=== PATIENT | male | born 2000 | race Caucasian/White ===

== ENCOUNTER 2024-10-20 21:42 | Emergency (ER) | payer OTHER ==
[2024-10-20 21:49] VITALS: BP 134/73; PULSE 86; RESP 18; TEMP 98; BMI 22.8
[2024-10-20] MEDS ORDERED: AMOX TR/POT CLAV 875MG/125MG TABLETS (FP) ONE (23:43)
[2024-10-20] MEDS: AMOX TR/POT CLAV 875MG/125MG TABLETS (FP) PO ONE (23:45)
[2024-10-21] MEDS ORDERED: BACITRACIN ZINC 15 GM TUBE TOPICAL OINTMENT TP ONE (00:03)
[2024-10-21] MEDS ORDERED: BACITRACIN ZINC 15 GM TUBE TOPICAL OINTMENT ONE (00:03)
== END 2024-10-21 00:02 | disposition home or self-care (01) ==
LOC: JERFT 21:42 → JER 21:42
DX: S81.831A Puncture wound without foreign body, right lower leg, initial encounter (principal); W54.0XXA Bitten by dog, initial encounter
CPT/HCPCS: 99283-25